=== PATIENT | female | born 1975 | race Caucasian/White ===

== ENCOUNTER 2016-10-06 20:14 | Emergency (ER) | payer BC ==
[~2016-10-06] VITALS: Ht 160 cm; Wt 80.1 kg
[2016-10-06 21:15] LABS: MCH 29.6 PG (29.0-34.0); MCHC 33.2 G/DL (30.0-36.0); MCV 89.3 FL (83-99); MEAN PLAT.VOLUME 9.3 uM^3 (9.5-12.4); PLATELET COUNT 280 K/uL (156-360); RBC DIS.WIDTH-CV 12.3 % (11.8-14.6); RED BLOOD COUNT 4.59 M/uL (3.80-5.20); WHITE BLOOD COUNT 7.6 K/uL (4.1-10.2)
[2016-10-06 21:27] LABS: CHLORIDE 104 mEq/L (99-109); POTASSIUM 3.8 mEq/L (3.7-5.4); SODIUM 139 mEq/L (136-147)
[2016-10-06 21:29] LABS: GLUCOSE 89 mg/dL (70-99)
[2016-10-06 21:30] LABS: ANION GAP 8 MEQ/L (2-14)
[2016-10-06 21:34] LABS: GFR ESTIMATE (CALCULATED) > 59 mL/min/; TROP-I INTERPRETATION NEGATIVE; TROPONIN-I 0.03 ng/mL (0.0-0.30); UREA NITROGEN (BUN) 9 mg/dL (9-23)
[2016-10-06] MEDS ORDERED: NAPROSYN500 MG PO (23:14)
[2016-10-06] MEDS ORDERED: MEDROL DOSEPAK4 MG PO (23:14)
[2016-10-06] MEDS ORDERED: SKELAXIN800 MG PO (23:14)
[2016-10-06 23:32] VITALS: BP 136/97
== END 2016-10-06 23:38 | disposition home or self-care (01) ==
LOC: EME 20:14
DX: M54.12 Radiculopathy, cervical region (principal)
CPT/HCPCS: 71020; 72040; 80048; 84484; 85027; 93005; 99281; 99283; J1885